=== PATIENT | female | born 1975 | race American Indian/Alaskan Native ===

== ENCOUNTER 2017-09-06 15:18 | Emergency (ER) | payer MEDICAID, OTHER ==
[2017-09-06 15:26] VITALS: BMI 24.9
[2017-09-06] MEDS ORDERED: Sodium Chloride 0.9% 1,000 ML IV STA (15:32)
--- NOTE | 2017-09-06 15:36 | ED PDOC ---
Arrival/HPI - General Chief Complaint: Chest Pain Time Seen by Provider: 09/06/17 15:26 Historian: Patient - History of Present Illness Narrative History of Present Illness (Text): 09/06/17 15:26 42 y/o female, correction smoker, no pmh, nkda, c/o rt. sided chest pain with coughing x 2 days. Pt. stated that she has been coughing for the past 2 days, aching pain, associated with the rt. sided chest pain when coughing, no night sweat, no rash, no numbness or tingling, no palpitation, no leg or calf pain, no rash, no dizziness, no other medical or psychological complaints. Past Medical History - Provider Review Nursing Documentation Reviewed: Yes - Psychiatric Hx Substance Use: Yes Family/Social History - Physician Review Nursing Documentation Reviewed: Yes Family/Social History: Unknown Family HX Smoking Status: Former Smoker Hx Alcohol Use: Yes Frequency of alcohol use: Socially Hx Substance Use: Yes Substance used: marijuana Allergies/Home Meds Allergies/Adverse Reactions: Allergies No Known Allergies Allergy (Verified 09/06/17 15:26) Review of Systems - Review of Systems Constitutional: absent: Fatigue, Fevers Eyes: absent: Vision Changes ENT: absent: Hearing Changes, Sore Throat, Rhinorrhea Respiratory: Cough. absent: SOB, Sputum, Wheezing Cardiovascular: Chest Pain Gastrointestinal: absent: Abdominal Pain, Nausea, Vomiting Musculoskeletal: absent: Arthralgias, Back Pain, Myalgias Skin: absent: Pruritis Psychiatric: absent: Anxiety, Depression, Suicidal Ideation Physical Exam Vital Signs Reviewed: Yes Vital Signs Temp Pulse Resp BP Pulse Ox 09/06/17 20:32 98 F 83 18 116/66 98 09/06/17 18:39 97.9 F 89 16 142/81 100 09/06/17 17:40 90 16 128/86 99 09/06/17 15:23 113 H 16 133/86 96 Temperature: Afebrile Blood Pressure: Normal Pulse: Tachycardic Respiratory Rate: Normal Appearance: Positive for: Well-Appearing, Non-Toxic, Comfortable Pain Distress: Mild Mental Status: Positive for: Alert and Oriented X 3 - Systems Exam Head: Present: Atraumatic, Normocephalic Pupils: Present: PERRL Extroacular Muscles: Present: EOMI Conjunctiva: Present: Normal Mouth: Present: Moist Mucous Membranes Neck: Present: Normal Range of Motion Respiratory/Chest: Present: Clear to Auscultation, Good Air Exchange. No: Respiratory Distress, Accessory Muscle Use, Wheezes, Decreased Breath Sounds, Rales, Retracting, Rhonchi, Tachypneic, Tender to Palpation Cardiovascular: Present: Regular Rate and Rhythm, Normal S1, S2, Other (no pedal edema). No: Murmurs Abdomen: Present: Normal Bowel Sounds. No: Tenderness, Distention, Peritoneal Signs, Rebound, Guarding Back: Present: Normal Inspection Upper Extremity: Present: Normal Inspection. No: Cyanosis, Edema Lower Extremity: Present: Normal Inspection. No: Edema Neurological: Present: GCS=15, CN II-XII Intact, Speech Normal Skin: Present: Warm, Dry, Normal Color. No: Rashes Psychiatric: Present: Alert, Oriented x 3, Normal Insight, Normal Concentration Medical Decision Making ED Course and Treatment: 09/06/17 15:35 -labs/ua/thyroid profil/troponin/drug screen -ekg -cxr -IVF/toradol -observe and reassess 09/06/17 20:51 -EKG: Sinus Tachycardia @ 123 BPM, no ST elevation or depression, no T wave inversion. -Urine hcg negative. -Chest xray show no active disease -TSH is slightly low with 0.43, normal T4, normal total T3, normal free t3. non tachycardia, wants to be discharged. -Labs are non-significant with dimer around 409, CTA chest ordered. -UDS positive for cannabinoid -CTA show +pneumonia but no PE. -IV rocephine and azithromycin ordered. -Pt. is vitally stable, no focal neurological deficits, non-tachycardia -I explained to the patient the side effect of the levaquin including prolong qt and achilles tendon rupture, avoid gym/exercise while taking levaquin, pt. verbally expressed understanding and willing to accept the side effect and taking the medication. -Discharge home with levaquin, motrin, tessalon, avoid gym/exercise, follow up wit your own pmd within 2 days, return to the ER for any new or worsening signs or symptoms. - Lab Interpretations Lab Results: 09/06/17 15:55 09/06/17 15:55 Lab Results 09/06/17 16:22: Influenza Typ A,B (EIA) Negative for flu a/b 09/06/17 15:55: Total T3 1.23 09/06/17 15:55: Urine Opiates Screen Negative, Urine Methadone Screen Negative, Ur Barbiturates Screen Negative, Ur Phencyclidine Scrn Negative, Ur Amphetamines Screen Negative, U Benzodiazepines Scrn Negative, U Oth Cocaine Metabols Negative, U Cannabinoids Screen Positive H 09/06/17 15:55: Beta HCG, Quant < 2.39, Alcohol, Quantitative < 10 09/06/17 15:55: WBC 7.0, RBC 4.33, Hgb 13.1, Hct 38.6, MCV 89.1, MCH 30.3, MCHC 33.9, RDW 14.0, Plt Count 270, MPV 9.7, Gran % 56.8, Lymph % (Auto) 37.0 H, [place] % (Auto) 5.7, Eos % (Auto) 0.4 L, Baso % (Auto) 0.1, Gran # 3.99, Lymph # ( Auto) 2.6, [place] # (Auto) 0.4, Eos # (Auto) 0.0, Baso # (Auto) 0.01 09/06/17 15:55: Free T4 0.86, TSH 3rd Generation 0.43 L 09/06/17 15:55: Sodium 140, Potassium 3.9, Chloride 103, Carbon Dioxide 25, Anion Gap 16, BUN 12, Creatinine 0.7, Est GFR ( Amer) > 60, Est GFR (Non- Af Amer) > 60, Random Glucose 157 H, Calcium 10.0, Magnesium 1.8, Total Bilirubin 0.2, AST 26, ALT 25, Alkaline Phosphatase 59, Lactate Dehydrogenase 465, Total Creatine Kinase 85, Troponin I < 0.01, NT-Pro-B Natriuret Pep 26.5, Total Protein 7.3, Albumin 4.3, Globulin 3.0, Albumin/Globulin Ratio 1.4, Free T3 pg/mL 4.09 09/06/17 15:55: D-Dimer, Quantitative 409 H I have reviewed the lab results: Yes - RAD Interpretation Radiology Orders: 09/06/17 15:32 CHEST PORTABLE [RAD] Stat 09/06/17 16:33 ANGIO CHEST PE PROTOCOL [CT] Stat CTA Chest: PULMONARY ARTERIES: Unremarkable. No pulmonary embolism. AORTA: No acute findings. No thoracic aortic aneurysm. LUNGS: There is ground-glass opacity in the left lower lobe which may reflect an early pneumonia. Followup is advised. PLEURAL SPACES: Unremarkable. No effusion or pneuomothorax. HEART: Unremarkable. No cardiomegaly. No significant pericardial effusion. LYMPH NODES: No lymphadenopathy. BONES, CHEST WALL: Unremarkable. No fracture or destructive lesion OTHER FINDINGS: Unremarkable. IMPRESSION: No evidence of pulmonary embolism. Ground-glass opacity in left lower lobe may reflect early pneumonia. Followup advised. Otherwise unremarkable examination. Chest xray: HISTORY: rt. sided chest pain with cough x 2 days COMPARISON: No prior. FINDINGS: LUNGS: No active pulmonary disease. PLEURA: No significant pleural effusion identified, no pneumothorax apparent. CARDIOVASCULAR: Normal. OSSEOUS STRUCTURES: No significant abnormalities. VISUALIZED UPPER ABDOMEN: Normal. OTHER FINDINGS: None. IMPRESSION: No active disease. 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 Interpreted by ED Physician: Yes Type: 12 lead EKG - Medication Orders Current Medication Orders: Discontinued Medications Sodium Chloride (Sodium Chloride 0.9%) 1,000 mls @ 999 mls/hr IV .Q1H1M STA Stop: 09/06/17 16:32 Last Admin: 09/06/17 15:58 Dose: 999 mls/hr eMAR Start Stop Document 09/06/17 15:58 MS (Rec: 09/06/17 16:59 MS [id number]) Intravenous Solution Start Date 09/06/17 Start Time 16:58 Ceftriaxone Sodium (Rocephin 1 Gram Ivpb) 1 gm in 100 mls @ 200 mls/hr IVPB STAT STA PRN Reason: Protocol Stop: 09/06/17 18:29 Last Admin: 09/06/17 18:28 Dose: 200 mls/hr eMAR Start Stop Document 09/06/17 18:28 MS (Rec: 09/06/17 18:30 MS [facility] [id number]) Intravenous Solution Start Date 09/06/17 Start Time 18:29 End Date 09/06/17 End time 18:59 Total Infusion Time 30 Azithromycin (Zithromax 500mg In Ns) 500 mg in 250 mls @ 167 mls/hr IVPB STAT STA PRN Reason: Protocol Stop: 09/06/17 19:29 Last Admin: 09/06/17 18:54 Dose: 167 mls/hr eMAR Start Stop Document 09/06/17 18:54 MS (Rec: 09/06/17 18:55 MS [facility] [id number]) Intravenous Solution Start Date 09/06/17 Start Time 18:54 End Date 09/06/17 End time 20:24 Total Infusion Time 90 Ketorolac Tromethamine (Toradol) 30 mg IVP STAT STA Stop: 09/06/17 15:33 Last Admin: 09/06/17 15:53 Dose: 30 mg MAR Pain Assessment Document 09/06/17 15:53 MS (Rec: 09/06/17 16:01 MS [facility] [id number]) Pain Reassessment Is this a pain reassessment? No Sleep Is patient sleeping during reassessment? 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 Disposition/Present on Arrival - Present on Arrival Any Indicators Present on Arrival: No History of DVT/PE: No History of Uncontrolled Diabetes: No Urinary Catheter: No History of Decub. Ulcer: No History Surgical Site Infection Following: None - Disposition Have Diagnosis and Disposition been Completed?: Yes Diagnosis: Drug abuse, Pneumonia, Subclinical hyperthyroidism Disposition: HOME/ ROUTINE Disposition Time: 18:07 Patient Plan: Discharge Condition: IMPROVED Discharge Instructions (ExitCare): Pneumonia in Adults Additional Instructions: -Discharge home with levaquin, motrin, tessalon, avoid gym/exercise, follow up wit your own pmd within 2 days, return to the ER for any new or worsening signs or symptoms. Prescriptions: Benzonatate [Tessalon Perles] 100 mg PO TID PRN #30 sgl PRN Reason: Other Ibuprofen [Motrin Tab] 600 mg PO QID PRN #24 tab PRN Reason: Other Levofloxacin [Levaquin] 750 mg PO DAILY #5 tab Referrals: [facility] at [facility] [Outside] - Follow up with primary Guanaco Lindo MD [Staff Provider] - Follow up with primary PCP,NO [Primary Care Provider] - Follow up with primary Miguelangel,Maryanne Gordon MD [Medical Doctor] - Follow up with primary Forms: WORK NOTE
[2017-09-06 16:13] LABS: BASO # 0.01 K/mm3 (0.0-2.0); BASO % 0.1 % (0.0-3.0); EOS % 0.4 % (1.5-5.0); GRAN # 3.99 (1.4-6.5); GRAN % 56.8 % (50.0-68.0); HEMOGLOBIN 13.1 g/dL (12.0-16.0); LYMPH # 2.6 (1.2-3.4); MEAN CELL VOLUME 89.1 fl (80.0-105.0); MEAN CORPUSCULAR HEMOGLOBIN 30.3 pg (25.0-35.0); MEAN CORPUSCULAR HGB CONC 33.9 g/dl (31.0-37.0); MEAN PLATELET VOLUME 9.7 fl (7.0-11.0); MONO # 0.4 (0.1-0.6); MONO % 5.7 % (1.0-6.0); RBC 4.33 10^6/uL (3.5-6.1)
[2017-09-06 16:22] LABS: ALB/GLOB RATIO 1.4 (1.1-1.8); ALBUMIN 4.3 g/dL (3.0-4.8); ALT/SGPT 25 U/L (7-56); AST/SGOT 26 U/L (14-36); BLOOD UREA NITROGEN 12 mg/dL (7-21); GFR AFRICAN-AMERICAN > 60; GFR NON-AFRICAN AMERICAN > 60; MAGNESIUM 1.8 mg/dL (1.7-2.2)
[2017-09-06 16:38] LABS: FREE T4 0.86 ng/dL (0.78-2.19)
[2017-09-06 16:40] LABS: B-TYPE NATRIURETIC PEPTIDE 26.5 pg/mL (0-450); TROPONIN I < 0.01 ng/mL
[2017-09-06] MEDS ORDERED: Iohexol 350 MG/100 ML VIAL ONE (16:40)
--- NOTE | 2017-09-06 16:45 | RAD ---
HISTORY: rt. sided chest pain with cough x 2 days COMPARISON: No prior. FINDINGS: LUNGS: No active pulmonary disease. PLEURA: No significant pleural effusion identified, no pneumothorax apparent. CARDIOVASCULAR: Normal. OSSEOUS STRUCTURES: No significant abnormalities. VISUALIZED UPPER ABDOMEN: Normal. OTHER FINDINGS: None. IMPRESSION: No active disease.
[2017-09-06 16:59] LABS: BARBITURATES, UR NEGATIVE (NEGATIVE); BENZODIAZEPINES, UR NEGATIVE (NEGATIVE); OPIATES, UR NEGATIVE (NEGATIVE); PHENCYCLIDINE, UR NEGATIVE (NEGATIVE)
--- NOTE | 2017-09-06 17:54 | CT ---
PROCEDURE: CT Chest with contrast (Pulmonary Angiogram) HISTORY: rt. sided chest pain, r/o pe COMPARISON: None available. TECHNIQUE: Axial computed tomography images were obtained of the chest in the pulmonary arterial phase of enhancement. Coronal and sagittal reformatted images were created and reviewed. Intravenous contrast dose: 100 mL Omnipaque 350 Radiation dose: Total exam DLP = 242.52 mGy-cm. This CT exam was performed using one or more of the following dose reduction techniques: Automated exposure control, adjustment of the mA and/or kV according to patient size, and/or use of iterative reconstruction technique. FINDINGS: PULMONARY ARTERIES: Unremarkable. No pulmonary embolism. AORTA: No acute findings. No thoracic aortic aneurysm. LUNGS: There is ground-glass opacity in the left lower lobe which may reflect an early pneumonia. Followup is advised. PLEURAL SPACES: Unremarkable. No effusion or pneuomothorax. HEART: Unremarkable. No cardiomegaly. No significant pericardial effusion. LYMPH NODES: No lymphadenopathy. BONES, CHEST WALL: Unremarkable. No fracture or destructive lesion OTHER FINDINGS: Unremarkable. IMPRESSION: No evidence of pulmonary embolism. Ground-glass opacity in left lower lobe may reflect early pneumonia. Followup advised. Otherwise unremarkable examination.
[2017-09-06] MEDS ORDERED: Azithromycin 500MG/NS 250ml 500 MG/250 ML BAG IVPB STA (18:00)
[2017-09-06] MEDS ORDERED: cefTRIAXone 1 gm 1 GM/100 ML BAG IVPB STA (18:00)
[2017-09-06 20:33] VITALS: BP 116/66; PULSE 83; RESP 18; TEMP 98; O2SAT 98
--- NOTE | 2017-09-07 02:26 | CARD ---
APPROVED REPORT EKG Measurement Heart [id number] <Conclusion> Poor data quality, interpretation may be adversely affected Sinus tachycardia Possible Left atrial enlargement Borderline ECG
== END 2017-09-06 21:14 | disposition home or self-care (01) ==
LOC: MERGE 15:18 → ED 15:18
DX: J18.9 Pneumonia, unspecified organism (principal); F19.10 Other psychoactive substance abuse, uncomplicated; E05.90 Thyrotoxicosis, unspecified without thyrotoxic crisis or storm; Z87.891 Personal history of nicotine dependence
CPT/HCPCS: 71045; 71275; 80053; 82550; 83615; 83735; 83880; 84439; 84443; 84481; 84484; 84702; 85025; 85378; 87804; 93005; 96365; 96367; 96375; 99285; G0480; J0456; J0696; J1885; J7040; Q9967

== ENCOUNTER 2017-09-15 13:27 | Emergency (ER) | payer MEDICAID ==
[2017-09-15 13:28] VITALS: BMI 24.9
[2017-09-15] MEDS ORDERED: Albuterol-Ipratrop 3 mg / 0.5 (3 ml) UD IH STA (14:13)
--- NOTE | 2017-09-15 14:17 | ED PDOC ---
Arrival/HPI - General Chief Complaint: Shortness Of Breath Time Seen by Provider: 09/15/17 13:59 Historian: Patient - History of Present Illness Narrative History of Present Illness (Text): 09/15/17 14:14 pt p/w for re-eval since her dx of bronchitis/pneumonia ~ 09/06; pt states she was seen at that time in the ED ([facility]) and prescribed abx; pt states she has since finished the abx, coughing is significantly improved but since yesterday felt slight chest tightness and + felt a touch of sob, as if she cant get a good deep breath; pt states tightness is minimal in pain; pt continued to be able to do her daily chores without difficulties; pt denied fever/chills/sweats , no palpitations, no abd pain, no n/v, no numbness/tingling, no urinary/bowel changes, no rashes, no fall/trauma/sick contact, no travel; pt denied LOC, no lightheadedness, no focal weakness pt is here for further eval pt's without other complaints PCP: NONE no insurance, awaiting for medicaid to start Time/Duration: < week Symptom Onset: Sudden Symptom Course: Unchanged Quality: Tightness Severity Level: 2, Mild Activities at Onset: Rest Context: Home Past Medical History - Provider Review Nursing Documentation Reviewed: Yes - Travel History Have you recently traveled outside [place] w/in the past 3 mons?: No - Past History Past History: No Previous - Infectious Disease Hx of Infectious Diseases: None - Reproductive Menopause: No - Psychiatric Hx Substance Use: Yes - Anesthesia Hx Anesthesia: Yes Hx Anesthesia Reactions: No Family/Social History - Physician Review Nursing Documentation Reviewed: Yes Family/Social History: No Known Family HX Smoking Status: Former Smoker (stopped smoking 4 months ago) Hx Alcohol Use: Yes Hx Substance Use: Yes Substance used: marijuana Hx Substance Use Treatment: No Allergies/Home Meds Allergies/Adverse Reactions: Allergies No Known Allergies Allergy (Verified 09/15/17 13:59) Review of Systems - Review of Systems Constitutional: Normal Eyes: Normal ENT: Normal Respiratory: SOB. absent: Cough Cardiovascular: Chest Pain. absent: Palpitations, Syncope Gastrointestinal: Normal Genitourinary Female: Normal Musculoskeletal: Normal Skin: Normal Neurological: Normal Endocrine: Normal Hemo/Lymphatic: Normal Psychiatric: Normal Physical Exam Vital Signs Reviewed: Yes Vital Signs Temp Pulse Resp BP Pulse Ox 09/15/17 15:08 88 18 138/74 100 09/15/17 14:36 98.1 F 84 16 144/91 H 100 09/15/17 14:34 18 100 09/15/17 13:54 98.8 F 82 16 141/65 99 Temperature: Afebrile Blood Pressure: Hypertensive Pulse: Regular Respiratory Rate: Normal Appearance: Positive for: Well-Appearing, Non-Toxic, Comfortable, Other (alert/ awake, cooperative, NAD, GCS = 15, oriented x 3, NAD) Pain Distress: None Mental Status: Positive for: Alert and Oriented X 3 - Systems Exam Head: Present: Atraumatic, Normocephalic Pupils: Present: PERRL, Other (no nystagmus, no photophobia, sclera anicteric) Extroacular Muscles: Present: EOMI Conjunctiva: Present: Normal Ears: Present: Normal Mouth: Present: Moist Mucous Membranes, Normal Teeth, Other (uvula/tongue are midline, no exudate/lesions, no drooling/stridor, no dysphonia) Pharnyx: Present: Normal Nose (External): Present: Atraumatic Nose (Internal): Present: Normal Inspection Neck: Present: Normal Range of Motion, Trachea Midline, Other (intact ROM, no midline tenderness, no nuchal rigidity, no meningeal signs). No: MIDLINE TENDERNESS, JVD Respiratory/Chest: Present: Clear to Auscultation, Good Air Exchange, Other ( CTA b/l, no w/r/r, no accessory muscle use noted, no tachypenia) Cardiovascular: Present: Regular Rate and Rhythm, Normal S1, S2. No: Murmurs Abdomen: Present: Normal Bowel Sounds, Other (well nourished female, no focal tenderness, no browning's sign, no mcburney's point tenderness, no masses/rebound/ guarding/rigidity) Back: Present: Normal Inspection, Other (no cvat b/l, no flank tenderness b/l, no gross deformities noted, no step off). No: Midline Tenderness Upper Extremity: Present: Normal Inspection, Normal ROM, NORMAL PULSES, Neurovascularly Intact, Capillary Refill < 2s. No: Edema Lower Extremity: Present: Normal Inspection, NORMAL PULSES, Normal ROM, Neurovascularly Intact, Capillary Refill < 2 s, Other (+ ambulatory). No: Trey 's Sign Neurological: Present: GCS=15, CN II-XII Intact, Speech Normal, Other (NIH stroke scale ~ 0) Skin: Present: Warm, Normal Color, Other (cap refill < 1sec, no ulcerations, no petechiae, no pallor) Psychiatric: Present: Alert Medical Decision Making ED Course and Treatment: 09/15/17 14:16 Impression: sob/chest pain i have consider all the differential diagnosis regarding pt's chief medical complaints/clinical findings, including but are not limited to: sob/chest pain A/P: sob, chest pain - ekg - observe - supportive care - unlikely ACS 09/15/17 16:00 pt felt much improved pt states no difficulty breathing currently Lung re-exam: CTA b/l, no tachypenia, no accessory muscle use noted vital signs are stable pt is made aware of her medical results pt is encouraged no smoking pt is encouraged hydration pt will f/u as directed pt will be discharged home Re-evaluation Time: 15:57 Reassessment Condition: Improved - EKG Interpretation EKG Interpretation (Text): 09/15/17 16:13 NSR at 75 bpm, normal axis, no ectopy, no st-t changes, NORMAL EKG otherwise; unchanged compare with old ekg 08/2017 Interpreted by ED Physician: Yes Type: 12 lead EKG Comparison: Similar to previous EKG - Medication Orders Current Medication Orders: Discontinued Medications Albuterol/Ipratropium (Duoneb 3 Mg/0.5 Mg (3 Ml) Ud) 3 ml IH STAT STA Stop: 09/15/17 14:14 Last Admin: 09/15/17 14:31 Dose: 3 ml Ibuprofen (Motrin Tab) 400 mg PO STAT STA Stop: 09/15/17 14:14 Last Admin: 09/15/17 14:30 Dose: 400 mg MAR Pain/Vitals Document 09/15/17 14:30 [facility] (Rec: 09/15/17 14:30 [facility] [id number]) Pain Reassessment Is This A Pain ReAssessment? No Sleep Is patient sleeping during reassessment? No Presence of Pain Presence of Pain Yes Pain Scale Used Pain Scale Used Numeric Location Pain Location Body Site Chest Intensity 1 Scale Used Numeric Disposition/Present on Arrival - Present on Arrival Any Indicators Present on Arrival: No History of DVT/PE: No History of Uncontrolled Diabetes: No Urinary Catheter: No History of Decub. Ulcer: No History Surgical Site Infection Following: None - Disposition Have Diagnosis and Disposition been Completed?: Yes Diagnosis: Chest tightness, Reactive airway disease Disposition: HOME/ ROUTINE Disposition Time: 15:58 Patient Plan: Discharge Patient Problems: Current Active Problems Problem Status Onset Chest tightness Acute Reactive airway disease Acute Condition: STABLE Discharge Instructions (ExitCare): Chest Pain That Is Not Caused by the Heart ( DC), How to Use Your Metered Dose Inhaler (Adults) Print Language: ALBANIAN Additional Instructions: Make sure to see your doctor in 1-2 days DRINK PLENTY OF FLUIDS DONT SMOKE WEED take your medications as prescribed RETURN TO ED IF worse pain, cant breath, persistent vomiting, high fever >101- 102 for hours, altered behavior, unable to urinate, heavy/persistent bleeding, passing out, chest pain, or other medical emergencies Prescriptions: Albuterol HFA [Ventolin HFA 90 mcg/actuation (8 g)] 1 puff IH QID PRN #1 inhaler PRN Reason: wheezing Referrals: Nataliya Leung, [Primary Care Provider] - Follow up with primary [facility] [Outside] - Follow up with primary Forms: [employer] (Thai)
[2017-09-15 15:08] VITALS: RESP 18
[2017-09-15 16:55] VITALS: BP 136/72; PULSE 80; TEMP 98; O2SAT 97
--- NOTE | 2017-09-16 09:13 | CARD ---
APPROVED REPORT EKG Measurement Heart [id number] <Conclusion> Normal sinus rhythm Normal ECG
== END 2017-09-15 16:57 | disposition home or self-care (01) ==
LOC: ED 13:27
DX: J45.909 Unspecified asthma, uncomplicated (principal); R07.89 Other chest pain; Z87.891 Personal history of nicotine dependence

== ENCOUNTER 2018-08-23 12:54 | Emergency (ER) | payer MEDICAID ==
[2018-08-23 12:56] VITALS: BMI 24.9
[2018-08-23 13:11] VITALS: RESP 18; TEMP 98.5
--- NOTE | 2018-08-23 14:45 | RAD ---
Date of service: 08/23/2018 HISTORY: cough COMPARISON: 09/06/2017 TECHNIQUE: Chest PA and lateral FINDINGS: LUNGS: No active pulmonary disease. PLEURA: No significant pleural effusion identified. No pneumothorax apparent. CARDIOVASCULAR: No aortic atherosclerotic calcification present. Normal cardiac size. No pulmonary vascular congestion. OSSEOUS STRUCTURES: No significant abnormalities. VISUALIZED UPPER ABDOMEN: Normal. OTHER FINDINGS: None. IMPRESSION: No active disease. No significant interval change compared to the prior examination(s).
--- NOTE | 2018-08-23 15:03 | ED PDOC ---
Arrival/HPI - General Chief Complaint: Cough, Cold, Congestion Time Seen by Provider: 08/23/18 12:58 Historian: Patient - History of Present Illness Narrative History of Present Illness (Text): 08/23/18 13:10 43 year old female, whose past medical history includes bronchitis/pneumonia (09/06/17), who presents to the emergency department complaining of coughing for the past 2 weeks. Patient reports she has been taking Amoxicillin that her son gave to her. Patient notes son was prescribed Amoxicillin when he went to the dentist one time. Patient states she had a sore throat, but does not anymore. in er pt sleepgin in nad. . Patient denies any fevers, chest pain, shortness of breath, abdominal pain, nausea, vomiting, diarrhea, back pain, neck pain, urinary symptoms, headache, dizziness, or any other complaint. PMD: Gillina Shelton 08/23/18 16:28 Time/Duration: < week (Pt notes onset as 2 weeks ago) Symptom Onset: Sudden Symptom Course: Unchanged Activities at Onset: Light Past Medical History - Provider Review Nursing Documentation Reviewed: Yes - Past History Past History: No Previous - Infectious Disease Hx of Infectious Diseases: None - Reproductive Currently : Unknown - Psychiatric Hx Substance Use: Yes - Anesthesia Hx Anesthesia: Yes Hx Anesthesia Reactions: No Family/Social History - Physician Review Nursing Documentation Reviewed: Yes Family/Social History: No Known Family HX Smoking Status: Current Some Days Smoker Hx Alcohol Use: Yes Frequency of alcohol use: Few days per week Hx Substance Use: Yes Substance used: marijuana Hx Substance Use Treatment: No Allergies/Home Meds Allergies/Adverse Reactions: Allergies No Known Allergies Allergy (Verified 08/23/18 13:11) Home Medications: Home Meds Medication Instructions Recorded Confirmed RX: No Known Home Med 08/23/18 08/23/18 Review of Systems - Physician Review All systems were reviewed & negative as marked: Yes - Review of Systems Constitutional: Normal. absent: Fevers ENT: Normal. absent: Sore Throat (Pt notes she had a sore throat, but not currently ) Respiratory: Cough (Pt notes onset as past 2 weeks ). absent: Normal, SOB Cardiovascular: Normal. absent: Chest Pain Gastrointestinal: Normal. absent: Abdominal Pain, Diarrhea, Nausea, Vomiting Genitourinary Female: Normal. absent: Urine Output Changes Musculoskeletal: Normal. absent: Back Pain, Neck Pain Neurological: Normal. absent: Headache, Dizziness Physical Exam Vital Signs Reviewed: Yes Vital Signs Temp Pulse Resp BP Pulse Ox 08/23/18 13:49 86 18 111/60 96 08/23/18 13:08 98.5 F 98 H 18 119/79 97 Temperature: Afebrile Blood Pressure: Normal Pulse: Tachycardic Respiratory Rate: Normal Appearance: Positive for: Well-Appearing, Non-Toxic Pain Distress: None Mental Status: Positive for: Alert and Oriented X 3 - Systems Exam Head: Present: Atraumatic, Normocephalic Pupils: Present: PERRL Extroacular Muscles: Present: EOMI Conjunctiva: Present: Normal Mouth: Present: Moist Mucous Membranes Neck: Present: Normal Range of Motion Respiratory/Chest: Present: Clear to Auscultation, Good Air Exchange. No: Respiratory Distress, Accessory Muscle Use Cardiovascular: Present: Regular Rate and Rhythm, Normal S1, S2. No: Murmurs Abdomen: No: Tenderness, Distention, Peritoneal Signs Back: Present: Normal Inspection Upper Extremity: Present: Normal Inspection. No: Cyanosis, Edema Lower Extremity: Present: Normal Inspection. No: Edema Neurological: Present: GCS=15, CN II-XII Intact, Speech Normal Skin: Present: Warm, Dry, Normal Color. No: Rashes Psychiatric: Present: Alert, Oriented x 3, Normal Insight, Normal Concentration Medical Decision Making ED Course and Treatment: 08/23/18 13:10 Impression: 43 year old female who presents to the emergency department for coughing for the past 2 weeks. Differential Diagnosis included but are not limited to: Plan: -- X-Ray of chest -- Reassess and disposition Prior Visits: Notes and results from previous visits were reviewed. Patient was last seen in the emergency department on 09/15/17 for re-evaluation of her diagnosis of bronchitis/pneumonia fom 09/06/17. Patient was discharged in stable condition and prescribed Ventolin for wheezing. Progress Notes: 08/23/18 16:28 lungc ta, cxr neg. pt sleeping in nad. vitals stable. stable for dc. suspect post viral tussis. return precautions advised. - RAD Interpretation Narrative RAD Interpretations (Text): X-Ray of chest reviewed by radiologist, shows: Dictated By: Jimmy Mcdonald MD Dictated Date/Time: 08/23/18 14:42 Impression: No active disease. No significant interval change compared to the prior examination(s). Radiology Orders: 08/23/18 13:15 CXR [CHEST TWO VIEWS (PA/LAT)] [RAD] Stat Buckle Attaching Machine Operator: Radiologist - Scribe Statement The provider has reviewed the documentation as recorded by the Scribe Josselyn Abreu All medical record entries made by the Scribe were at my direction and personally dictated by me. I have reviewed the chart and agree that the record accurately reflects my personal performance of the history, physical exam, medical decision making, and the department course for this patient. I have also personally directed, reviewed, and agree with the discharge instructions and disposition. Disposition/Present on Arrival - Present on Arrival Any Indicators Present on Arrival: No History of DVT/PE: No History of Uncontrolled Diabetes: No Urinary Catheter: No History of Decub. Ulcer: No History Surgical Site Infection Following: None - Disposition Have Diagnosis and Disposition been Completed?: Yes Diagnosis: Cough Disposition: HOME/ ROUTINE Disposition Time: 15:00 Condition: STABLE Discharge Instructions (ExitCare): Cough in Adults Additional Instructions: return to er with worsening symptoms or concerns. Referrals: [facility] [Outside] - Follow up with primary [facility] [Outside] - Follow up with primary Gillian Riddle MD [Primary Care Provider] - Follow up with primary Forms: [employer] (Nepalese)
[2018-08-23 15:08] VITALS: BP 112/74; PULSE 84; O2SAT 97
== END 2018-08-23 15:15 | disposition home or self-care (01) ==
LOC: ED 12:54
DX: R05 Cough (principal)